=== PATIENT | female | born 1970 | race Caucasian/White ===

== ENCOUNTER 2018-03-04 16:13 | Emergency (ER) | payer BC ==
[2018-03-04 17:25] LABS: Urine Blood NEGATIVE (NEG); Urine Glucose NEGATIVE (NEG); Urine Protein 2+ (NEG); Urine Specific Gravity 1.025 (1.005-1.030)
[2018-03-04 17:27] LABS: Absolute Lymphocytes (CBC) 1.5 K/uL (0.7-4.9); Absolute Monocytes 0.7 K/uL (0.1-1.3); Absolute Neutrophil 3.7 K/uL (1.8-8.0); Basophils % 0.9 % (0-1.3); Eosinophils % 2.2 % (0-4.4); Lymphocytes % 24.4 % (15.3-44.8); MCH 30.7 pg (27.0-35.0); MCV 91.2 fL (80-100); MPV 7.8 fL (7.6-11.3); Monocytes % 11.3 % (3.3-12.3); RBC Red Blood Cell Count 4.06 M/uL (3.86-4.86)
--- NOTE | 2018-03-04 17:27 | RAD REPORT ---
EXAM DESCRIPTION: CT - Head Brain Wo Cont - 03/04/2018 5:21 pm CLINICAL HISTORY: SYNCOPE COMPARISON: HEAD BRAIN W O CONTRAST dated 03/14/2008; HEAD BRAIN W O CONTRAST dated 12/25/2004 TECHNIQUE: All CT scans are performed using dose optimization technique as appropriate and may inclu de automated exposure control or mA/KV adjustment according to patient size. FINDINGS: No intracranial hemorrhage, hydrocephalus or extra-axial fluid collection.No areas of brai n edema or evidence of midline shift. The paranasal sinuses and mastoids are clear. The calvarium is intact. IMPRESSION: No acute intracranial abnormality.
[2018-03-04 17:31] LABS: Protime INR 1.06
--- NOTE | 2018-03-04 17:31 | RAD REPORT ---
EXAM DESCRIPTION: RAD - Chest Single View - 03/04/2018 5:24 pm CLINICAL HISTORY: COUGH Chest pain. COMPARISON: No comparisons FINDINGS: Portable technique limits examination quality. The lungs are grossly clear. The heart is normal in size. No displaced fractures. IMPRESSION: No acute intrathoracic process suspected.
[2018-03-04 17:32] LABS: Barbiturates NEGATIVE (NEGATIVE); Benzodiazepines NEGATIVE (NEGATIVE); Cocaine NEGATIVE (NEGATIVE); METHAMPHETAM NEGATIVE (NEGATIVE); Methadone NEGATIVE (NEGATIVE); Opiates NEGATIVE (NEGATIVE); Phencyclidine NEGATIVE (NEGATIVE); THC Cannibis NEGATIVE (NEGATIVE)
[2018-03-04] MEDS ORDERED: THIAMINE 200 MG/2 ML INJ ONE (17:32)
[2018-03-04 18:19] LABS: ALT/SGPT 17 U/L (12-78); AST/SGOT 11 U/L (15-37); Albumin 3.5 g/dL (3.4-5.0); Alkaline Phosphatase 47 U/L (45-117); BUN Blood Urea Nitrogen 14 mg/dL (7-18); Bicarbonate 25 mmol/L (21-32); Bilirubin Direct < 0.1 mg/dL (0-0.2); Bilirubin Total 0.3 mg/dL (0.2-1.0); Creatine Phosphokinase 57 U/L (26-192); Glucose Level 110 mg/dL (74-106); Magnesium 2.1 mg/dL (1.8-2.4); Potassium 3.9 mmol/L (3.5-5.1); Protein, Total 6.8 g/dL (6.4-8.2); Sodium Level 143 mmol/L (136-145)
[2018-03-04 18:20] LABS: Alcohol Serum/Plasma 15 mg/dL (<3)
[2018-03-04 18:30] LABS: CKMB Creatine Kinase MB < 1.0 ng/mL (0.3-3.6)
--- NOTE | 2018-03-04 19:05 | ER ---
Nurse's Notes [facility] Name: Tova Snowden Age: 47 yrs Sex: Female : 1970 Arrival Date: 03/04/2018 Time: 16:17 Bed 6 Private MD: Diagnosis: Syncope and collapse Presentation: 03/04 16:18 Presenting complaint: EMS states: Had 2 margaritas and 2 beers today, was sitting jl7 outside listening to a band, saw stars and then passed out. Denies hitting her head. C/o nausea. Transition of care: patient was not received from another setting of care. Onset of symptoms was March 04, 2018. Risk Assessment: Do you want to hurt yourself or someone else? Patient reports no desire to harm self or others. Initial Sepsis Screen: Does the patient meet any 2 criteria? No. Patient's initial sepsis screen is negative. Does the patient have a suspected source of infection? No. Patient's initial sepsis screen is negative. Care prior to arrival: Medication(s) given: Normal saline infusion, 200 mL IV initiated. 18 GA, in the left antecubital area, Glucose check: 123. 16:18 Method Of Arrival: EMS: [facility] 7 16:18 Acuity: JULES 3 jl7 Triage Assessment: 16:24 General: Appears uncomfortable, Behavior is calm, cooperative, appropriate for age. jl7 Pain: Denies pain. EENT: No signs and/or symptoms were reported regarding the EENT system. Neuro: Level of Consciousness is awake, alert, obeys commands, Oriented to person, place, time, situation, Reports a syncopal episode. Cardiovascular: Patient's skin is warm and dry. Respiratory: Airway is patent Respiratory effort is even, unlabored, Respiratory pattern is regular, symmetrical. GI: Reports nausea, Patient currently denies diarrhea, vomiting. : No signs and/or symptoms were reported regarding the genitourinary system. Derm: Skin is diaphoretic, Skin is pale, Skin temperature is warm. Musculoskeletal: No signs and/or symptoms reported regarding the musculoskeletal system. 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 - Social history:: Smoking status: Patient/guardian denies using tobacco, Patient/guardian denies using street drugs. - Ebola Screening: : No symptoms or risks identified at this time. - Family history:: not pertinent. Screenin:31 Abuse screen: Denies threats or abuse. Denies injuries from another. Nutritional jl7 screening: No deficits noted. Tuberculosis screening: No symptoms or risk factors identified. Fall Risk IV access (20 points). Total Pascal Fall Scale indicates No Risk (0-24 pts). Assessment: 16:31 General: See triage assessment. Neuro: Level of Consciousness is awake, alert, obeys jl7 commands, Oriented to person, place, time, situation. Cardiovascular: Rhythm is sinus rhythm. 17:30 Reassessment: No changes from previously documented assessment. Patient and/or family jl7 updated on plan of care and expected duration. Pain level reassessed. Patient is alert, oriented x 3, equal unlabored respirations, skin warm/dry/pink. Vital Signs: 16:24 BP 98 / 67; Pulse 75; Resp 19 S; Temp 97.8(O); Pulse Ox 92% on R/A; Weight 97.52 kg jl7 (R); Height 5 ft. 9 in. (175.26 cm) (R); Pain 0/10; 17:21 BP 107 / 62; Pulse 76; Resp 16 S; Pulse Ox 100% on R/A; jl7 19:05 BP 117 / 67 Supine; Pulse 70; Resp 16 S; Pulse Ox 100% on R/A; jl7 19:07 BP 123 / 76 Sitting; Pulse 72; jl7 19:09 BP 131 / 74; Pulse 71; Resp 16 S; Pulse Ox 100% on R/A; Pain 0/10; jl7 16:24 Body Mass Index 31.75 (97.52 kg, 175.26 cm) jl7 ED Course: 16:17 Patient arrived in ED. jl7 16:18 Augustus Gonsales MD is Attending Physician. [facility] 16:23 Triage completed. jl7 16:24 Arm band placed on right wrist. jl7 16:31 Patient has correct armband on for positive identification. Placed in gown. Bed in low jl7 position. Call light in reach. Side rails up X 1. cardiac monitor technician on. Pulse ox on. NIBP on. 16:31 Maintain EMS IV. Dressing intact. Good blood return noted. Site clean \T\ dry. Gauge \T\ jl 7 site: 18 Left AC. 17:00 Urine collected: straight cath specimen, clear, Amount Returned: 100mL EKG done, by ED jl7 staff, reviewed by Augustus Gonsales MD. Straight cath inserted, using sterile technique, 16 Fr. Specimen obtained. Returned clear yellow urine. Patient tolerated well. 17:10 Initial lab(s) drawn, by nc, sent to lab. jl7 17:16 Ariel Williamson, RN is Primary Nurse. jl7 17:20 CT completed. Patient moved to CT via stretcher. Patient moved back from CT. cw1 17:21 CT Head Brain wo Cont In Process Unspecified. EDMS 17:24 XRAY Chest (1 view) In Process Unspecified. EDWY 19:25 No provider procedures requiring assistance completed. IV discontinued, intact, jl7 bleeding controlled, No redness/swelling at site. Pressure dressing applied. Administered Medications: 17:10 Drug: NS 0.9% 1000 ml Route: IV; Rate: 1 bolus; Site: left antecubital; jl7 18:10 Follow up: IV Status: Completed infusion jl7 17:44 Drug: Thiamine 100 mg Route: IV; Rate: bolus; Site: left antecubital; jl7 18:00 Follow up: Response: No adverse reaction; IV Status: Completed infusion jl7 Point of Care Testing: Blood Glucose: 16:24 Blood Glucose: 88 mg/dL; jl7 Ranges: Outcome: 19:05 Discharge ordered by MD. albert 19:25 Discharged to home ambulatory, with family. jl7 19:25 Condition: stable 19:25 Discharge instructions given to patient, family, Instructed on discharge instructions, follow up and referral plans. Demonstrated understanding of instructions, follow-up care. 19:28 Patient left the ED. jl7 Signatures: Dispatcher [employer] Augustus Landaverde MD MD cha Woodley, Crystal cw1 Ariel Williamson, RN LITO 7
--- NOTE | 2018-03-04 19:06 | EDPHYS ---
Physician Documentation [facility] Name: Tova Snowden Age: 47 yrs Sex: Female : 1970 Arrival Date: 03/04/2018 Time: 16:17 Bed 6 Private MD: ED Physician Augustus Gonsales HPI: 03/04 17:22 This 47 yrs old Female presents to ER via EMS with complaints of Syncope. bety 17:22 The patient has experienced syncope, became unresponsive. Onset: The symptoms/episode bety began/occurred just prior to arrival. Duration: This was a single episode, that lasted an unknown period of time. Context: the episode(s) was witnessed, by family. Associated injury: The patient did not suffer any apparent associated injury. Associated signs and symptoms: The patient has no apparent associated signs or symptoms. Current symptoms: Currently, the patient is not experiencing any symptoms, the patient feels back to baseline. The patient has not experienced similar symptoms in the past. 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 - Social history:: Smoking status: Patient/guardian denies using tobacco, Patient/guardian denies using street drugs. - Ebola Screening: : No symptoms or risks identified at this time. - Family history:: not pertinent. ROS: 17:22 Constitutional: Negative for fever, chills, and weight loss, Eyes: Negative for injury, bety pain, redness, and discharge, ENT: Negative for injury, pain, and discharge, Neck: Negative for injury, pain, and swelling, Cardiovascular: Negative for chest pain, palpitations, and edema, Respiratory: Negative for shortness of breath, cough, wheezing, and pleuritic chest pain, Abdomen/GI: Negative for abdominal pain, nausea, vomiting, diarrhea, and constipation, Back: Negative for injury and pain, : Negative for injury, bleeding, discharge, and swelling, MS/Extremity: Negative for injury and deformity, Skin: Negative for injury, rash, and discoloration, Psych: Negative for depression, anxiety, suicide ideation, homicidal ideation, and hallucinations, Allergy/Immunology: Negative for hives, rash, and allergies, Endocrine: Negative for neck swelling, polydipsia, polyuria, polyphagia, and marked weight changes, Hematologic/Lymphatic: Negative for swollen nodes, abnormal bleeding, and unusual bruising. 17:22 Neuro: Positive for syncope, weakness. Exam: 17:22 Constitutional: This is a well developed, well nourished patient who is awake, alert, bety and in no acute distress. Head/Face: Normocephalic, atraumatic. Eyes: Pupils equal round and reactive to light, extra-ocular motions intact. Lids and lashes normal. Conjunctiva and sclera are non-icteric and not injected. Cornea within normal limits. Periorbital areas with no swelling, redness, or edema. ENT: Nares patent. No nasal discharge, no septal abnormalities noted. Tympanic membranes are normal and external auditory canals are clear. Oropharynx with no redness, swelling, or masses, exudates, or evidence of obstruction, uvula midline. Mucous membranes moist. Neck: Trachea midline, no thyromegaly or masses palpated, and no cervical lymphadenopathy. Supple, full range of motion without nuchal rigidity, or vertebral point tenderness. No Meningismus. Chest/axilla: Normal chest wall appearance and motion. Nontender with no deformity. No lesions are appreciated. Cardiovascular: Regular rate and rhythm with a normal S1 and S2. No gallops, murmurs, or rubs. Normal PMI, no JVD. No pulse deficits. Respiratory: Lungs have equal breath sounds bilaterally, clear to auscultation and percussion. No rales, rhonchi or wheezes noted. No increased work of breathing, no retractions or nasal flaring. Abdomen/GI: Soft, non-tender, with normal bowel sounds. No distension or tympany. No guarding or rebound. No evidence of tenderness throughout. Back: No spinal tenderness. No costovertebral tenderness. Full range of motion. Female : Normal external genitalia. Skin: Warm, dry with normal turgor. Normal color with no rashes, no lesions, and no evidence of cellulitis. MS/ Extremity: Pulses equal, no cyanosis. Neurovascular intact. Full, normal range of motion. Neuro: Awake and alert, GCS 15, oriented to person, place, time, and situation. Cranial nerves II-XII grossly intact. Motor strength 5/5 in all extremities. Sensory grossly intact. Cerebellar exam normal. Normal gait. Psych: Awake, alert, with orientation to person, place and time. Behavior, mood, and affect are within normal limits. Vital Signs: 16:24 BP 98 / 67; Pulse 75; Resp 19 S; Temp 97.8(O); Pulse Ox 92% on R/A; Weight 97.52 kg jl7 (R); Height 5 ft. 9 in. (175.26 cm) (R); Pain 0/10; 17:21 BP 107 / 62; Pulse 76; Resp 16 S; Pulse Ox 100% on R/A; jl7 19:05 BP 117 / 67 Supine; Pulse 70; Resp 16 S; Pulse Ox 100% on R/A; jl7 19:07 BP 123 / 76 Sitting; Pulse 72; jl7 19:09 BP 131 / 74; Pulse 71; Resp 16 S; Pulse Ox 100% on R/A; Pain 0/10; jl7 16:24 Body Mass Index 31.75 (97.52 kg, 175.26 cm) 7 MDM: 16:18 Patient medically screened. [facility] 17:23 Data reviewed: vital signs, nurses notes, lab test result(s), EKG, radiologic studies, [facility] CT scan, plain films. 03/04 17:03 Order name: Basic Metabolic Panel; Complete Time: 18:50 [facility] 03/04 17:03 Order name: CBC with Diff; Complete Time: 17:56 [facility] 03/04 17:03 Order name: Ckmb; Complete Time: 18:50 [facility] 03/04 17:03 Order name: CPK; Complete Time: 18:50 [facility] 03/04 17:03 Order name: LFT's; Complete Time: 18:50 [facility] 03/04 17:03 Order name: Magnesium; Complete Time: 18:50 [facility] 03/04 17:03 Order name: Troponin (emerg Dept Use Only); Complete Time: 17:56 [facility] 03/04 17:03 Order name: Acetaminophen; Complete Time: 18:50 [facility] 03/04 17:03 Order name: ETOH Level; Complete Time: 18:50 [facility] 03/04 17:03 Order name: PT-INR; Complete Time: 17:56 [facility] 03/04 17:03 Order name: Ptt, Activated; Complete Time: 17:56 [facility] 03/04 17:03 Order name: Salicylate; Complete Time: 18:17 [facility] 03/04 17:03 Order name: Urine Drug Screen; Complete Time: 17:56 [facility] 03/04 17:16 Order name: Urine Dipstick--Ancillary (enter results); Complete Time: 17:56 [facility] 03/04 17:03 Order name: XRAY Chest (1 view); Complete Time: 17:56 [facility] 03/04 17:03 Order name: EKG; Complete Time: 17:04 [facility] 03/04 17:03 Order name: Cardiac monitoring; Complete Time: 17:18 [facility] 03/04 17:03 Order name: EKG - Nurse/Tech; Complete Time: 17:17 [facility] 03/04 17:03 Order name: IV Saline Lock; Complete Time: 17:17 [facility] 03/04 17:03 Order name: Labs collected and sent; Complete Time: 17:17 [facility] 03/04 17:03 Order name: O2 Per Protocol; Complete Time: 17:17 [facility] 03/04 17:03 Order name: O2 Sat Monitoring; Complete Time: 17:17 [facility] 03/04 17:03 Order name: Urine Dipstick-Ancillary (obtain specimen); Complete Time: 17:17 [facility] 03/04 17:03 Order name: CT Head Brain wo Cont; Complete Time: 17:56 [facility] 03/04 17:16 Order name: Urine --Ancillary (enter results); Complete Time: 17:56 [facility] 03/04 18:30 Order name: Orthostatics; Complete Time: 19:24 [facility] Administered Medications: 17:10 Drug: NS 0.9% 1000 ml Route: IV; Rate: 1 bolus; Site: left antecubital; jl7 18:10 Follow up: IV Status: Completed infusion jl7 17:44 Drug: Thiamine 100 mg Route: IV; Rate: bolus; Site: left antecubital; jl7 18:00 Follow up: Response: No adverse reaction; IV Status: Completed infusion jl7 Point of Care Testing: Blood Glucose: 16:24 Blood Glucose: 88 mg/dL; jl7 Ranges: Critical Glucose Levels:Adult <50 mg/dl or >400 mg/dl <40 mg/dl or >180 mg/dl Disposition: 03/04/18 19:05 Discharged to Home. Impression: Syncope and collapse. - Condition is Stable. - Discharge Instructions: Near-Syncope, Syncope, Weakness, Alcohol Intoxication, [id number], Near-Syncope, [id number], Alcohol Abuse and Nutrition, Syncope, Uocu-ej-Ifcx, Weakness, [id number]-[id number]. - Medication Reconciliation Form, Thank You Letter, Antibiotic Education, Prescription Opioid Use form. - Follow up: Private Physician; When: 2 - 3 days; Reason: Recheck today's complaints, Continuance of care, Re-evaluation by your physician. - Problem is new. - Symptoms have improved. Signatures: Dispatcher [employer] EDAugustus Sears MD MD cha Leal, Jahala RN RN jl7 Corrections: (The following items were deleted from the chart) 19:28 19:05 03/04/2018 19:05 Discharged to Home. Impression: Syncope and collapse. Condition jl7 is Stable. Discharge Instructions: Near-Syncope, Syncope, Weakness, Alcohol Intoxication, Sqbo-yn-Ycdg, Near-Syncope, Ywev-oa-Nogh, Alcohol Abuse and Nutrition, Syncope, Rfzk-vf-Arbw, Weakness, Gpvs-ag-[id number]. Forms are Medication Reconciliation Form, Thank You Letter, Antibiotic Education, Prescription Opioid Use. Follow up: Private Physician; When: 2 - 3 days; Reason: Recheck today's complaints, Continuance of care, Re-evaluation by your physician. Problem is new. Symptoms have improved. bety
--- NOTE | 2018-03-05 10:38 | EKG ---
Test Date: 2018-03-04 Test Time: 16:38:16 Area Safety Manager: TETO MEASUREMENT RESULTS: Intervals: Rate: 72 OH: 160 QRSD: 94 QT: 430 QTc: 470 [place]: P: 68 OH: 160 QRS: 64 T: 42 INTERPRETIVE STATEMENTS: Normal sinus rhythm Normal ECG No previous ECG available for comparison Electronically Signed On 03-05-18 10:37:57 CDT by Kin Colon
== END 2018-03-04 19:28 | disposition home or self-care (01) ==
LOC: ER 16:13
DX: R55 Syncope and collapse (principal); Z88.6 Allergy status to analgesic agent; Z88.2 Allergy status to sulfonamides
CPT/HCPCS: 36415; 51702; 70450; 71045; 80048; 80076; 80307; 80320; 80329; 81003; 81025; 82550; 82553; 82962; 83735; 84484; 85025; 85610; 85730; 93005; 96361; 96365; 99285; J3411